=== PATIENT | female | born 1970 | race Caucasian/White ===

== ENCOUNTER 2021-06-18 12:30 | Outpatient (CLI) | payer SELFPAY ==
[2021-06-18 12:49] LABS: Hematocrit 42.3 % (37.0-47.0); Mean Corpuscular HGB Conc 33.1 g/dl (32-36); Mean Corpuscular Hemoglobin 31.7 pg (26-34); Mean Corpuscular Volume 95.9 fl (80-100); Mean Platelet Volume 8.8 fl (7.4-10.4); Platelet Count Result 271 k/mm3 (150-375); Red Blood Count 4.41 M/mm3 (4.2-5.4); Red Cell Distribution Width 12.1 % (11.5-14.5); White Blood Count 7.5 K/mm3 (4.5-10.0)
[2021-06-18 13:41] LABS: Erythrocyte Sedimentation Rate 21 mm/hr (0-20)
== END 2021-06-18 12:31 | disposition home or self-care (01) ==
PROVIDERS: Visit Provider Family Medicine
DX: I88.9 Nonspecific lymphadenitis, unspecified (principal)
CPT/HCPCS: 36415; 85027; 85652; 86140

== ENCOUNTER 2022-07-19 10:28 | Emergency (ER) | payer BC, SELFPAY ==
--- NOTE | ~2022-07-19 | XR_ITS ---
EXAMINATION: XR chest 2V DATE: 07/19/2022 11:22 INDICATION: Productive cough. TECHNIQUE: Frontal and lateral views of the chest were obtained. COMPARISON: Chest 2 views 07/21/17 FINDINGS: There is mild scarring at the lung apices. No pneumonia, pleural effusion, or pneumothorax. The heart size is normal. There is an electronic implant in anterior chest wall. IMPRESSION: 1. Stable mild scarring at the lung apices. Reviewed, dictated and finalized at location [facility].
[2022-07-19 10:47] VITALS: BP 126/74; PULSE 67; RESP 16; TEMP 37.1; O2SAT 99
[2022-07-19 10:51] VITALS: BP 126/74; PULSE 67; RESP 16; TEMP 37.1; O2SAT 99
--- NOTE | 2022-07-19 11:31 | ED.URI ---
HPI - URI/Sore Throat General Chief Complaint: Upper Respiratory Infection Stated Complaint: Coughing Time Seen by Provider: 07/19/22 10:55 Source: patient Mode of arrival: ambulatory Limitations: no limitations History of Present Illness HPI Narrative: Aidee is a 51-year-old female patient presenting to the clinic today with complaints productive cough, feeling feverish and chills, mild shortness of breath, body aches, headache, MD elicited complaint: sore throat and nasal congestion Related Data Home Medications Medication Instructions Recorded Confirmed fluticasone propionate 50 2 mcg intranasal DAILY 07/19/22 07/19/22 mcg/actuation nasal spray,suspension levothyroxine 50 mcg tablet 50 mcg PO DAILY 07/19/22 07/19/22 (Euthyrox) magnesium oxide 400 mg (241.3 mg 400 mg PO DAILY 07/19/22 07/19/22 magnesium) tablet metoprolol tartrate 25 mg tablet 25 mg PO DAILY 07/19/22 07/19/22 Allergies Allergy/AdvReac Type Severity Reaction Status Date / Time codeine Allergy Severe Anaphylactic Verified 07/19/22 10:43 Shock aspirin Allergy Intermediate Dyspnea / Verified 07/19/22 10:43 SOB betamethasone Allergy Intermediate Hives / Verified 07/19/22 10:43 Red Face nortriptyline Allergy Intermediate leg edema Verified 07/19/22 10:43 penicillin G Allergy Intermediate Dyspnea / Verified 07/19/22 10:43 SOB drospirenone Allergy Unknown Nausea Verified 07/19/22 10:43 ethinyl estradiol Allergy Unknown Nausea Verified 07/19/22 10:43 propoxyphene Allergy Unknown Nausea Verified 07/19/22 10:43 Sulfa (Sulfonamide Allergy Unknown Unknown Verified 07/19/22 10:43 Antibiotics) tetanus and diphtheria Allergy Unknown Other Verified 07/19/22 10:43 toxoids Contrast Media Allergy Mild HIVES Uncoded 07/19/22 10:43 DETERGENT Allergy Unknown RASH Uncoded 07/19/22 10:43 dipropionate Allergy Unknown Redness of Uncoded 07/19/22 10:43 Skin soap Allergy Unknown Rash Uncoded 07/19/22 10:43 norgestrel-ethinyl estradiol AdvReac Unknown Headache Uncoded 07/19/22 10:43 Review of Systems Review of Systems: Pertinent positives per HPI. Patient denies any rash, visual changes, dizziness, chest pain, palpitations, nausea, vomiting, diarrhea, constipation, abdominal pain, or any urinary issues. PMFSH Comments At the time of my signature, I reviewed and agree with the nursing past medical, surgical, social, and family history. There is no relevant family history pertinent to the patient complaint. Exam Narrative: General: Well-developed, well nourished, in no apparent distress Head: Normocephalic, atraumatic Eyes: Pupils equally round and reactive to light bilaterally, EOM intact, sclera and conjunctive clear, no discharge, lids normal Ears: TMs intact and clear, ear canals clear, no drainage, grossly hearing normal. Nose: Nares patent, clear discharge, no inflammation, no sinus tenderness. Mouth: Oral pharynx without lesions or masses, good dentition, MMM. Neck: Supple, trachea midline, no enlargement of anterior or posterior cervical nodes, no thyroid masses or goiter palpable. Cardio: Regular rate and rhythm, s1 and s2 normal, no murmur appreciated. Resp: lung sounds diminished in the bases otherwise clear, no rhonchi, rales, wheezing or rubs Course Course Emergency Course: Portions of this record may have been created with voice recognition software. Level of Care: Express Care Visit Vital Signs Vital signs: Vital Signs Temperature 37.1 C 07/19/22 10:47 Pulse Rate 67 07/19/22 10:47 Respiratory Rate 16 07/19/22 10:47 Blood Pressure 126/74 07/19/22 10:47 Pulse Oximetry 99 07/19/22 10:47 Oxygen Delivery Room Air 07/19/22 10:47 Temperature 37.1 C 07/19/22 10:51 Pulse Rate 67 07/19/22 10:51 Respiratory Rate 16 07/19/22 10:51 Blood Pressure 126/74 07/19/22 10:51 Pulse Oximetry 99 07/19/22 10:51 Oxygen Delivery Room Air 07/19/22 10:51 Vital signs reviewed
== END 2022-07-19 11:55 | disposition home or self-care (01) ==
PROVIDERS: Emergency Provider Nurse Practitioner Family
DX: B34.9 Viral infection, unspecified (principal); J06.9 Acute upper respiratory infection, unspecified; Z20.822 Contact with and (suspected) exposure to COVID-19; I34.1 Nonrheumatic mitral (valve) prolapse
CPT/HCPCS: 71046; 87426; 87804; 99213; C9803; G0463

== ENCOUNTER 2024-05-08 18:12 | Emergency (ER) | payer OTHER, SELFPAY ==
--- NOTE | ~2024-05-08 | XR_ITS ---
EXAMINATION: XR sacrum coccyx min 2V DATE: 05/08/2024 19:11 INDICATION: Tailbone pain post fall TECHNIQUE: 3 views of the sacrum and coccyx were obtained. COMPARISON: None. FINDINGS: Bone alignment is normal. On the lateral projection there is a subtle oblique linear lucency and disc ontinuity of the anterior cortex at the S4 segment suspicious for nondisplaced fracture. Sacral arche s are intact. 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 IMPRESSION: 1. Suggestion of a nondisplaced fracture across S4. Reviewed, dictated and finalized at location A.
[2024-05-08 18:25] VITALS: BP 116/50; PULSE 78; RESP 16; TEMP 36.9; O2SAT 100
--- NOTE | 2024-05-08 18:41 | ED.FALL ---
HPI - Fall General Chief Complaint: Fall Stated Complaint: FALL Time Seen by Provider: 05/08/24 18:41 Source: patient Mode of arrival: ambulatory Limitations: no limitations History of Present Illness HPI Narrative: 53-year-old female presented for complaint of pain to the tailbone after a fall this evening. She states 5:00 p.m. she slipped on wet stairs and landed directly onto her tailbone. She endorses feeling compressed and felt pain to the chest, ribs and 'insides.' She states she was incontinent of urine at the time of the fall. Denies hitting her head or LOC. Denies pain radiating into the hips or legs, numbness, tingling, weakness of the lower extremities, or change in gait, saddle paresthesia or loss of bowel since the fall. has not taken anything for pain Related Data Home Medications Medication Instructions Recorded Confirmed levothyroxine 50 mcg tablet 50 mcg PO DAILY 07/19/22 05/08/24 (Euthyrox) metoprolol tartrate 25 mg tablet 25 mg PO DAILY 07/19/22 05/08/24 Allergies Allergy/AdvReac Type Severity Reaction Status Date / Time codeine Allergy Severe Anaphylactic Verified 05/08/24 18:38 Shock aspirin Allergy Intermediate Dyspnea / Verified 05/08/24 18:38 SOB betamethasone Allergy Intermediate Hives / Verified 05/08/24 18:38 Red Face nortriptyline Allergy Intermediate leg edema Verified 05/08/24 18:38 penicillin G Allergy Intermediate Dyspnea / Verified 05/08/24 18:38 SOB drospirenone Allergy Unknown Nausea Verified 05/08/24 18:38 ethinyl estradiol Allergy Unknown Nausea Verified 05/08/24 18:38 propoxyphene Allergy Unknown Nausea Verified 05/08/24 18:38 Sulfa (Sulfonamide Allergy Unknown Unknown Verified 05/08/24 18:38 Antibiotics) tetanus and diphtheria Allergy Unknown Other Verified 05/08/24 18:38 toxoids Contrast Media Allergy Mild HIVES Uncoded 07/19/22 10:43 DETERGENT Allergy Unknown RASH Uncoded 07/19/22 10:43 dipropionate Allergy Unknown Redness of Uncoded 07/19/22 10:43 Skin soap Allergy Unknown Rash Uncoded 07/19/22 10:43 norgestrel-ethinyl estradiol AdvReac Unknown Headache Uncoded 07/19/22 10:43 Review of Systems Review of Systems: CONSTITUTIONAL: Denies body aches, fever, chills, or sweats. CARDIOVASCULAR: Denies chest pain, palpitations, or edema. RESPIRATORY: Denies cough or dyspnea. GASTROINTESTINAL: Denies abdominal pain, nausea, vomiting, or diarrhea. GENITOURINARY: Denies dysuria or hematuria. SKIN: Denies rash, itching, or wounds. MUSCULOSKELETAL: Reports tailbone pain NEUROLOGIC: Denies headache, lower extremity numbness, tingling, or weakness. All systems reviewed & are unremarkable except as noted in HPI and below PMFSH Comments At time of signature, I have reviewed and agree with nursing past medical, surgical, social and family history unless otherwise noted. Please see nursing chart for further information. There is no relevant family history pertinent to the presenting complaint Exam Narrative: GENERAL: Well-appearing, appears in pain at times with movements HEAD: Normocephalic, atraumatic. EYES: EOMI. ENT: Mucous membranes pink and moist. NECK: Normal AROM. CHEST: No respiratory distress. Clear to auscultation. HEART: Regular rate and rhythm. No murmur appreciated. Normal peripheral pulses. ABDOMEN: Soft, nontender, nondistended, normal active bowel sounds. MUSCULOSKELETAL: vertebral tenderness with palpation over sacrum/coccyx. No VPT or paraspinal tenderness to lumbar. CMS intact. EXTREMITIES: Normal range of motion. No edema. SKIN: Warm, dry, no bruising Capillary refill normal. Normal skin turgor. NEURO: No focal deficits. Alert and oriented x3. Gait steady. PSYCH: Normal affect. Course Course Emergency Course: Patient is aware of diagnosis, understands and agrees to treatment plan. Anticipatory guidance given. Patient agrees to follow-up as directed and is aware of reasons to seek care at the [facility]
== END 2024-05-08 19:47 | disposition home or self-care (01) ==
PROVIDERS: Emergency Provider Nurse Practitioner Family
DX: S32.10XA Unspecified fracture of sacrum, initial encounter for closed fracture (principal); W10.9XXA Fall (on) (from) unspecified stairs and steps, initial encounter; I34.1 Nonrheumatic mitral (valve) prolapse
CPT/HCPCS: 72220; 99213; G0463

== ENCOUNTER 2024-05-19 08:11 | Outpatient (CLI) | payer OTHER, SELFPAY ==
--- NOTE | ~2024-05-19 | CT_ITS ---
EXAMINATION: CT pelvis wo con DATE: 05/19/2024 08:25 INDICATION: Coccyx fracture TECHNIQUE: High resolution computed tomography (CT) of the pelvis was performed without intravenous c ontrast. Additional sagittal and coronal reconstructions were performed. Automated exposure control a nd iterative reconstruction technique were employed. The dose-length product was 523.93 mGy-cm. COMPARISON: 05/08/2024 FINDINGS: Again seen is a transverse fracture extending grossly S4 segment with inverted buckling of the anteri or cortex of the vertebral body and linear lucency extending across the right-sided posterior element s. There is subtle increased angulation of the anterior cortex at the S3 segment and cannot exclude a dditional undisplaced buckle fracture. No other fractures identified. Alignment remains essentially a natomic. Moderate osteoarthrosis T right L4-L5 facet joint. Mild osteoarthritis at the bilateral hip, sacroiliac joints and remaining lower lumbar facet joints. 5.4 cm soft tissue density left ovarian l esion. Visualized portions of bowels including the appendix are normal. Bladder, uterus and right adn exa are unremarkable. IMPRESSION: 1. Nondisplaced transverse fracture across S4 potential additional buckle fracture along the anterior cortex of S3. 2. 5.4 cm left adnexal lesion statistically most likely to represent a complex hemorrhagic cyst altho ugh differential would include endometrioma or solid neoplasm. Recommend pelvic ultrasound for furthe r evaluation. Reviewed, dictated and finalized at location A. IMPRESSION: 1. Nondisplaced transverse fracture across S4 potential additional buckle fract ure along the anterior cortex of S3. 2. 5.4 cm left adnexal lesion statistically most likely to represent a complex hemorrhagic cyst although differential would include endometrioma or solid neop lasm. Recommend pelvic ultrasound for further evaluation.
== END 2024-05-19 08:12 ==
DX: S32.19XD Other fracture of sacrum, subsequent encounter for fracture with routine healing (principal); X58.XXXD Exposure to other specified factors, subsequent encounter
CPT/HCPCS: 72192

== ENCOUNTER 2024-05-28 12:42 | Outpatient (CLI) | payer OTHER, SELFPAY ==
--- NOTE | ~2024-05-28 | US_ITS ---
EXAMINATION: US pelvic complete DATE: 05/28/2024 13:10 INDICATION: Left adnexal mass. TECHNIQUE: Multiple transabdominal sonographic images of the pelvis were obtained. COMPARISON: CT pelvis 05/19/2024 FINDINGS: The uterus measures 6.7 x 3.3 x 4.0 cm. There is no free fluid in the pelvis. The endometrial complex measures 4 mm in thickness. There are 9 mm a 14 mm subserosal fibroids. The right ovary measures 2.1 x 1.4 x 2.2 cm. The left ovary measures 5.3 x 4.7 x 4.2 cm. There is a 5.1 cm hypoechoic mass in lef t ovary. IMPRESSION: 1. 5.1 cm hypoechoic mass in left ovary. The differential diagnosis includes hemorrhagic cyst, endome trioma, and neoplasm. Consider surgical evaluation or pelvis MRI without and with contrast. Reviewed, dictated and finalized at location A. IMPRESSION: 1. 5.1 cm hypoechoic mass in left ovary. The differential diagnosis includes he morrhagic cyst, endometrioma, and neoplasm. Consider surgical evaluation or pel vis MRI without and with contrast.
== END 2024-05-28 12:43 | disposition home or self-care (01) ==
LOC: MICIMG 12:43
DX: R19.09 Other intra-abdominal and pelvic swelling, mass and lump (principal); N83.202 Unspecified ovarian cyst, left side
CPT/HCPCS: 76856

== ENCOUNTER 2024-08-29 10:02 | Outpatient (CLI) | payer OTHER, SELFPAY ==
--- NOTE | ~2024-08-29 | US_ITS ---
Pelvic ultrasound. Clinical History: Ovarian mass Technique: Realtime transabdominal scanning of the pelvis was performed. Color flow Doppler and Doppl er spectral analysis were performed. Findings: The uterus is anteverted. The endometrial stripe has a thickness of 3 mm. No probable 12 m m fibroid noted. The right ovary measures 1.3 x 2.0 x 1.8 cm. No significant right ovarian or adnexal mass is seen. The left ovary measures 6.0 x 3.6 x 3.3 cm. Left ovarian probable cyst measures 4.7 x 2.9 x 2.9 cm. Vascular flow present in both ovaries on Doppler spectral analysis. There is no evidence of free fluid in the cul de sac. Impression: 4.7 x 2.9 x 2.9 cm left ovarian cyst versus other hypoechoic mass. This could be better evaluated wit h transvaginal imaging or MR. Reviewed, dictated and finalized at [facility]. OR [employer] Impression: 4.7 x 2.9 x 2.9 cm left ovarian cyst versus other hypoechoic mass. This could b e better evaluated with transvaginal imaging or MR.
== END 2024-08-29 10:03 | disposition home or self-care (01) ==
LOC: MICIMG 10:03
PROVIDERS: Visit Provider Obstetrics & Gynecology
DX: N83.8 Other noninflammatory disorders of ovary, fallopian tube and broad ligament (principal); N83.202 Unspecified ovarian cyst, left side
CPT/HCPCS: 76856